=== PATIENT | male | born 1970 | race Hispanic/Latino ===

== ENCOUNTER 2019-07-28 08:20 | Day surgery (SDC) | payer OTHER ==
[2019-07-28] MEDS ORDERED: SODIUM CHLORIDE 0.9% 1000 ML 1,000 ML ONE (08:52)
[2019-07-28] MEDS ORDERED: LIDOCAINE MPF (2%) 20 MG/1 ML VIAL 5 ML ONE (09:00)
--- NOTE | 2019-07-28 09:10 | Anesthesia Day of Surgery ---
Anesthesia Day of Surgery - Day of Surgery Patient Examined: Yes Patient H&P Reviewed: Yes Patient is NPO: Yes
--- NOTE | 2019-07-28 09:12 | Anesthesia Consultation ---
Anesthesia Consult and Med Hx Date of service: 07/28/19 - Airway Anesthetic Teeth Evaluation: Dentures, Edentulous ROM Head & Neck: Adequate Mental/Hyoid Distance: Adequate Mallampati Class: Class II Intubation Access Assessment: Good - Pre-Operative Health Status ASA Pre-Surgery Classification: ASA2 Proposed Anesthetic Plan: MAC - Pulmonary Hx Smoking: Yes (QUIT 2016) - Gastrointestinal Hx Gastroesophageal Reflux Disease: Yes
[2019-07-28] MEDS ORDERED: MIDAZOLAM 2 MG/2 ML INJ ONE (09:13)
[2019-07-28] MEDS ORDERED: SODIUM CHLORIDE 0.9% 1000 ML 1,000 ML IV SCH (09:30)
[2019-07-28] MEDS ORDERED: PROPOFOL 200 MG/20 ML VIAL IV ONE ×3 (09:51→10:34)
[2019-07-28] MEDS ORDERED: MIDAZOLAM 2 MG/2 ML INJ IV NR (10:00)
[2019-07-28] MEDS ORDERED: EPINEPHrine 1:10,000 1 MG/10 ML SYRINGE ONE (10:17)
--- NOTE | 2019-07-28 10:46 | Short Stay Summary ---
Short Stay Documentation Date of service: 07/28/19 Narrative H&P: The patient presents for EGD due to long standing GERD and exclusion of Barretts and presents for colonoscopy due to rectal bleeding. - History Past Medical History: No medical history Past Surgical History: No surgical history Social history: , lives with family - Allergies and Medications Current Medications: Allergies No Known Allergies Allergy (Unverified 07/28/19 08:20) Home Medications Medication Instructions Recorded Confirmed Last Taken Type Omeprazole 1 tab PO DAILY 07/28/19 07/28/19 07/27/19 07:00 History Active Medications Sodium Chloride (Nacl 0.9% 1000 Ml) 1,000 mls @ 50 mls/hr IV DIRECT BONNIE Last Admin: 07/28/19 09:20 Dose: 50 mls/hr Documented by: Midazolam HCl (Versed) 2 mg IV PREOP NR Stop: 07/28/19 23:59 - Physical exam General appearance: no acute distress, well-nourished Integumentary: no rash, no growths, no abnormal pigmentation HEENT: Atraumatic, PERRLA, EOMI, Mucous membr. moist/pink Lungs: Clear to auscultation, Normal air movement Breasts: deferred Heart: Regular rate, Normal S1, Normal S2, No murmurs Gastrointestinal: normoactive bowel sounds, no tenderness, no distended, no masses, no guarding, no organomegaly Male Genitourinary: deferred Rectal Exam: normal rectal tone, no mass Extremities: no ischemia, pulses intact, pulses symmetrical, No edema, normal temperature, normal color, Full ROM Neurological: Normal gait, Normal speech, Strength at 5/5 X4 ext, Normal tone, Sensation intact, Cranial nerves 3-12 NL - Brief post op/procedure progress note Date of procedure: 07/28/19 Procedure: see dictation Findings: see dictation Estimated blood loss: none Pathology: list (1. antral biopsies for h.pylori 2.biopsies of distal esophagus to exclude Blackwood's 3. rectosigmoid junction polyp 4. large rectal polyp on a stalk) Specimen disposition: to lab Condition: stable - Disposition Condition at discharge: Good Disposition: DC-01 TO HOME OR SELFCARE - Discharge Diagnoses (1) GERD (gastroesophageal reflux disease) Status: Acute (2) Rectal bleeding Status: Acute Short Stay Discharge Plan Activity: other (No driving for 24 hours. No NSAIDS for 10 days) Weight Bearing Status: Full Weight Bearing Diet: regular Follow up with: MJ US MD [Primary Care Provider] - 7 Days
--- NOTE | 2019-07-28 10:57 | Operative Report ---
Operative Report Operative Report: Date of procedure: 07/28/2019 Procedure: Esophagogastroduodenoscopy with biopsies of the antrum for H. pylori and biopsies of the distal esophagus for exclusion of Blackwood's. Preprocedure diagnosis: Long standing GERD. Post procedure diagnosis: Irregular Z line in the distal esophagus and sliding hiatus hernia. Endoscopist: Dr. Oseguera Anesthesia: Monitored anesthesia care per anesthesia department Medications: Propofol per anesthesia. Estimated blood loss: 0 After careful discussion of the nature and purpose of the procedure as well as details the technique risks benefits and alternatives consent was obtained. The patient was placed in the left lateral decubitus position and medicated per anes thesia. The tip of the Olympus video scope was passed per orum under direct vision into the esophagus and advanced into the stomach and descending duodenum. The descending duodenum the duodenal bulb and pylorus were symmetrical and normal. The scope was withdrawn into the stomach and the stomach then gently insufflated with air. The antrum was normal. Biopsies were taken for H. pylori testing. The stomach was further insufflated and the scope was then retroflexed and partially withdrawn. The cardia, fundus, and body of the stomach were within normal limits and easily distensible.The scope was then withdrawn in the forward position. A small sliding hiatus hernia was present. The esophagogastric junction was at 40 cm. Z line was irregular and biopsies were taken for exclusion of Blackwood's in the distal esophagus just below the Z line. The esophageal body was otherwise normal throughout. The procedure was was well tolerated and the patient was observed in recovery. Impressions: #1 small sliding hiatus hernia #2 irregular Z line, rule out Blackwood's esophagus versus healing esophagitis. Plan: Await pathology. The patient will call the office in approximately 10 days regarding the pathology report. Continue omeprazole. Electronically signed: Waylon Oseguera MD
--- NOTE | 2019-07-28 11:02 | Operative Report ---
Operative Report Operative Report: Date of procedure: 07/28/2019 Preprocedure diagnosis: Rectal bleeding Post procedure diagnosis: Large, 4-5 cm proximal rectal polyp on a stalk. Diminutive sessile rectosigmoid junction polyp. Procedure: Colonoscopy to the cecum with snare cautery polypectomy, epinephrine injection and clip placement for hemostasis. Endoscopist: Dr. Oseguera Anesthesia: Monitored anesthesia care per anesthesia department Estimated blood loss: 0 Medications: Monitored anesthesia care. See separate report by anesthesia for details. After careful discussion of the nature and purpose of the procedure as well as details of the technique risks benefits and alternatives the patient gave consent. Please see recent history and physical from the office. The patient was placed in the left lateral decubitus position and medicated per anesthesia. A rectal exam was performed sphincter tone was normal there were no masses palpable. The Olympus colonoscope was passed transanally and advanced under continuous direct vision without difficulty to the cecum. The colon was well prepared. The cecum was normal. The ascending colon was normal and on forward and retroflexed views. The transverse colon, descending colon, and sigmoid colon were normal. At the rectosigmoid junction there was a 6 mm sessile polyp. The polyp was removed with cold snare resection and retrieved by suction. A large, 4-5 cm villous appearing polyp on a 1 cm stalk was present in the proximal rectum just proximal to the second valve of Michel. The stalk was injected with 2 mL of epinephrine to prevent potential bleeding due to the large size of the polyp and the stalk. The polyp required removal in piecemeal fractions. Polyp appeared completely removed at the level of the stalk. A clip was placed at the stump in light of the large size of the stump base. No bleeding was encountered. The rectum was otherwise normal on forward and retroflexed views. The procedure was well-tolerated overall and the patient was observed in recovery. Conclusions: 1. Very large proximal rectal polyp. This post epinephrine injection and clip placement for hemostasis post-polypectomy. 2. Small rectosigmoid junction polyp. Plan: Await pathology. Follow-up colonoscopy in 6-12 months if there is no malignancy present in the large polyp. Signed electronically: Waylon Oseguera M.D.
--- NOTE | 2019-07-28 11:18 | Post Anesthesia Evaluation ---
- Post Anesthesia Evaluation Patient Participated: Yes Airway Patent: Yes Stable Respiratory Function: Yes Nausea/Vomiting: No Temp > 96.8F: Yes Pain Manageable: Yes Adequeate Hydration: Yes Anesthesia Complications: No Block Receding Appropriately: Not Applicable Patient on Ventilator: No
[2019-07-28 11:32] VITALS: BP 105/62
== END 2019-07-28 08:21 | disposition home or self-care (01) ==
LOC: GIO 08:20
PROVIDERS: ATTEND Internal Medicine Gastroenterology
DX: K62.5 Hemorrhage of anus and rectum (principal); K21.0 Gastro-esophageal reflux disease with esophagitis; D12.7 Benign neoplasm of rectosigmoid junction; K29.50 Unspecified chronic gastritis without bleeding; K62.1 Rectal polyp; K44.9 Diaphragmatic hernia without obstruction or gangrene; Z87.891 Personal history of nicotine dependence; Z79.899 Other long term (current) drug therapy; Z98.890 Other specified postprocedural states; Z98.52 Vasectomy status
CPT/HCPCS: 43239; 45381; 45385; 88305; 88342; J0171; J2250; J2704; J7030